=== PATIENT | female | born 1995 | race African-American/Black ===

== ENCOUNTER 2019-11-29 04:45 | Inpatient (IN) | payer OTHER, SELFPAY ==
[2019-11-29] VITALS (52 sets, daily range): BP systolic 92–129; BP diastolic 49–72; PULSE 25–112; RESP 16–18; TEMP 36.6–36.8; O2SAT 77–100; BMI 27.1
[2019-11-29 05:25] LABS: Basophils Absolute Auto 0.1 K/mm3 (0.0-0.1); Basophils Percent Auto 0.5 % (0.2-1.2); Eosinophils Absolute Auto 0.2 K/mm3 (0-0.3); Eosinophils Percent Auto 1.7 % (0-4.4); Hematocrit 35.2 % (37.0-47.0); Hemoglobin 11.6 g/dL (12.0-15.0); Immature Granulocyte Absolute 0.11 K/mm3 (0.00-0.031); Immature Granulocyte Percent A 1.1 % (0-0.5); Lymphocytes Absolute Auto 2.72 K/mm3 (0.9-3.2); Lymphocytes Percent Auto 27.5 % (18.3-44.2); Mean Corpuscular Hemoglobin 29.3 pg (26-34); Mean Corpuscular Volume 88.9 fl (80-100); Mean Platelet Volume 10.8 fl (7.4-10.4); Monocytes Absolute Auto 0.9 K/mm3 (0.1-0.6); Monocytes Percent Auto 9.3 % (2.6-8.5); Neutrophils Absolute Auto 5.9 K/mm3 (1.3-6.7); Neutrophils Percent Auto 59.9 % (45.5-73.1); Platelet Count Result 232 k/mm3 (150-375); Red Blood Count 3.96 M/mm3 (4.2-5.4); Red Cell Distribution Width 14.6 % (11.5-14.5); White Blood Count 9.9 K/mm3 (4.5-10.0)
--- NOTE | 2019-11-29 05:26 | LDADM ---
This patient, Gayle Soares, was admitted to Labor/Delivery/Recovery 106 on 11/29/19 at 04:45. Plans for labor, pain management and were discussed with patient. Patient/family oriented to hospital policies and general routines including ID bracelet, bed and alarms, visiting hours, pain management, procedures, bathroom and other care routines, personal items, smoking policy, room service/diet and guest tray routines, infant security routines, and visiting hours. Patient/Family are encouraged to report perceived risks to care and to ask questions if they do not understand what they are told or what they should do. See OBIX for further documentation.
[2019-11-29] MEDS: OXYTOCIN 30 UNITS/NS 500 ML 30 UNITS/500 ML BAG IV CONT (05:52)
[2019-11-29] MEDS: LACTATED RINGERS 1,000 ML 125 ML IV CONT ×2 (05:52→11:05)
--- NOTE | 2019-11-29 06:34 | P.PNAN_ITS ---
Anes - Eval Pre Procedure Procedure: Labor epidural Date/Time: 11/29/19 06:34 Surgeon: rito Preop Diagnosis: pain during labor Pre Op Diagnosis: IOL Patient Data Age: 23 Gender: F Height: 1.55 m Weight: 65 kg Last Vital Signs Temp 36.6 C 11/29/19 05:30 Pulse 83 11/29/19 06:30 BP 104/59 L 11/29/19 06:30 Allergies Allergy/AdvReac Type Severity Reaction Status Date / Time No Known Allergies Allergy Verified 11/06/19 12:30 Home Medications Medication Instructions Recorded Confirmed Type PNV cmb#95-ferrous fumarate-FA 1 tablet PO DAILY 11/06/19 11/06/19 History [] Laboratory Tests 11/29/19 11/29/19 05:09 05:09 WBC 9.9 K/mm3 K/mm3 (4.5-10.0) RBC 3.96 M/mm3 L M/mm3 (4.2-5.4) Hgb 11.6 g/dL L g/dL (12.0-15.0) Hct 35.2 % L % (37.0-47.0) MCV 88.9 fl fl (80-100) MCH 29.3 pg pg (26-34) MCHC 33.0 g/dl g/dl (32-36) RDW 14.6 % H % (11.5-14.5) Plt Count 232 k/mm3 k/mm3 (150-375) MPV 10.8 fl H fl (7.4-10.4) Immature Gran % (Auto) 1.1 % H % (0-0.5) Neut % (Auto) 59.9 % % (45.5-73.1) Lymph % (Auto) 27.5 % % (18.3-44.2) Collier % (Auto) 9.3 % H % (2.6-8.5) Eos % (Auto) 1.7 % % (0-4.4) Baso % (Auto) 0.5 % % (0.2-1.2) Lymph # (Auto) 2.72 K/mm3 K/mm3 (0.9-3.2) Collier # (Auto) 0.9 K/mm3 H K/mm3 (0.1-0.6) Eos # (Auto) 0.2 K/mm3 K/mm3 (0-0.3) Baso # (Auto) 0.1 K/mm3 K/mm3 (0.0-0.1) Abs Immat Gran (auto) 0.11 K/mm3 H K/mm3 (0.00-0.031) Absolute Neuts (auto) 5.9 K/mm3 K/mm3 (1.3-6.7) Absolute Nucleated RBC 0.0 K/mm3 K/mm3 (0.0-0.012) Nucleated RBC % 0.0 % % (0.0-0.2) RPR Pending Patient hx anesthesia problems: none Family hx anesthesia problems: none [facility] Family History Family History (Updated 11/06/19 @ 12:31 by Isaura Dale RN) Father Hypertension Social History Social History Smoking status: Never smoker Substance use: never Gender identity (if verbalized by the patient): Female Spiritual care concerns: No Exam Day of Procedure 11/29/19 06:34
--- NOTE | 2019-11-29 07:24 | WPDOBADMIT ---
Obstetrics - Admit Note Admission Note: record reviewed. No pertinent additions to the history and/or any subsequent changes in the physical findings that are not consistent with the expected course of the were found.EIL, GBS negative SVE 260/-2, AROM minimal amount of clear odorless fluid, anticipate vaginal delivery Additions to the history and/or subsequent changes in the physical findings follow. None.
[2019-11-29 08:21] LABS: Rapid Plasma Reagin Non-Reactive (NonReactive)
--- NOTE | 2019-11-29 13:30 | PM.OBPRVD ---
OB - Delivery Note Procedure Delivery date: 11/29/19 Procedure: vaginal delivery Intrapartal events: Deceleration Induction method: AROM and per pitocin protocol Delivery monitor: external FHT and external uterine Route of delivery: Laceration description: None Delivery repair: vicryl Specimen: Yes Estimated blood loss (mL): 145 Anesthesia type: Epidural Disposition: other () Baby Date of : 11/29/19 Time of : 13:23 Weeks of gestation at delivery: 39 Infant gender: Male Weight (pounds): 6 Weight (ounces): 2 presentation: vertex position: Right Occiput Anterior Placenta delivery description: Spontaneous cord vessel description: 3 Vessels, Loose and Around Body x1 score one minute: 9 score five minutes: 9 Narrative: mother and baby in stable condition
--- NOTE | 2019-11-29 13:46 | WPDANESEPN ---
Anes - Epidural Procedure Note Date/Time: 11/29/19 13:46 Consent: I have discussed with the patient/family/POA, the placement of an epidural catheter and the use of epidural narcotic/local anesthetic for labor analgesia and/or postoperative pain management, including associated potential risks, benefits, complications and side effects. I have discussed alternative methods of labor analgesia and/or postoperative pain management. The patient/family/POA, understand(s) and wish(es) to proceed with epidural narcotic/local anesthetic for labor analgesia and/or postoperative pain management. Time-Out: A pre-procedural Time-Out was completed immediately before starting the procedure and confirmed: Patient Identification, Site, Procedure, Patient Position and the Availability of Requisite Equipment. Epidural Insertion Note Patient position: sitting Needle: 18g Tuohy-Schliff Catheter: 20g Unstyleted Technique: Loss of resistance. Level of insertion: L3/4 Catheter skin nathan (cm): 11 Length in epidural space (cm): 5 Skin anesthesia: lidocaine 1% Test dose: 1.5% Lidocaine with 1:[id number] Epi, negative for subarachnoid Inj and negative for intravascular Inj Observations: tolerated well Complications: none
[2019-11-29] MEDS: OXYTOCIN 30 UNITS/NS 500 ML 30 UNITS/500 ML BAG 125 UNITS IV CONT (14:00)
[2019-11-29] MEDS: BENZOCAINE 20% AER SPR (*SP) 56 GM CAN 1 SPRAY TOPICAL (14:26)
[2019-11-29] MEDS: WITCH HAZEL 40 PADS 1 PAD TOPICAL (14:27)
--- NOTE | 2019-11-29 16:55 | PC.NURSE ---
Patient transferred to post room #290 per wheelchair from labor and delivery. Support person present. Oriented to unit, room, information board, rooming in, admission packet and security measures. Patient verbalizes understanding.
[2019-11-29] MEDS: IBUPROFEN 600 MG TABLET PO (17:49)
[2019-11-29] MEDS: ACETAMINOPHEN 325 MG TABLET 650 MG PO (20:36)
[2019-11-30] MEDS: IBUPROFEN 600 MG TABLET PO ×3 (00:06→13:09)
[2019-11-30] MEDS: ACETAMINOPHEN 325 MG TABLET 650 MG PO ×2 (04:10→11:34)
[2019-11-30 04:56] LABS: Hematocrit 34.2 % (37.0-47.0); Hemoglobin 11.1 g/dL (12.0-15.0)
[2019-11-30 07:07] VITALS: BP 98/61; PULSE 89; RESP 18; TEMP 36.9; O2SAT 97
--- NOTE | 2019-11-30 07:16 | WPDANLDPN2 ---
Anes-Prog Note L&D Date/Time: 11/30/19 07:16 Comfortable throughout: labor and delivery Neuraxial method: epidural Epidural/Spinal procedure site: clean & non-tender Neuro status: Neuro function grossly intact. Cardiovascular status: normal Respiratory status: normal Airway patency: baseline Mental status: baseline Post-Op hydration status: normal Vital Signs: Last Vital Signs Temp 36.6 C 11/29/19 20:00 Pulse 82 11/29/19 20:00 Resp 16 11/29/19 20:00 BP 111/70 11/29/19 20:00 Pulse Ox 100 11/29/19 20:00 I/O: Intake & Output 11/29/19 11/29/19 11/30/19 15:59 23:59 07:59 Intake Total 1000 500 Balance 1000 500 Post-procedural complaints: none Patient feedback: Patient satisfied with anesthetic care.
--- NOTE | 2019-11-30 08:53 | P.PNOB_ITS ---
OB - PN: Subj Subjective Date/time seen: 11/30/19 08:53 Patient comments: no complaints baby status: doing well OB - PN: Obj Data Labs CBC & Chem 7: 11/30/19 04:16 Labs: Laboratory Results - last 24 hr 11/30/19 04:16 Hgb 11.1 L Hct 34.2 L OB - PN A/P Plan day: 1 Plan: discharge home Time Spent With Patient Time: Total time spent is greater than 50% in coordination of care (as docu mented) at patient's floor/unit and/or counseling patient: Exam Const: General: comfortable Resp: Effort & Inspection: normal respiratory effort Psych: Appearance: grossly normal Affect: normal affect Attitude: cooperative Judgement: Good judgement present (Psych)
--- NOTE | 2019-11-30 08:55 | P.DS_ITS ---
OB - DS: Summary OB Procedures : None OB Procedures Intrapartum: Spontaneous Vag Delivery OB Procedures: : None Time Spent with Patient Time attestation: Total time spent providing and/or coordinating discharge services: DS: Data Data Completed and Pending Labs on day of discharge: Labs from last 24 hours 11/30/19 04:16 Hgb 11.1 L Hct 34.2 L Discharge Plan Discharge Attending physician on discharge: Ni Hill Discharging Clinician: Clarissa Martinez Patient Disposition: Home, Self-Care Activity: pelvic rest Diet: as tolerated and regular Patient Instructions: Antibiotic Form Stand Alone Forms: General Discharge Information Follow-up/Referrals: Clarissa Martinez CNM [Certified Nurse [employer] Department Supervisor] - 4 Weeks Discharge Medications: Continued PNV cmb#95-ferrous fumarate-FA [] 28 mg iron- 800 mcg Tablet 1 tablet PO DAILY RF: 0 Date of admission: 11/29/19 04:45 Primary Care Provider: PHYSICIAN,AUDIT CONTROL CLERK Admitting Provider: Ni Hill Attending physician on admission: Ni Hill
[2019-12-02 11:00] VITALS: BP 101/61; PULSE 96; RESP 20; TEMP 37.2; O2SAT 100
== END 2019-11-30 15:25 | disposition home or self-care (01) | DRG 560 ==
LOC: ANHLDR 04:48 → ANHOB2 17:17
PROVIDERS: Advanced Practice Midwife; Admitting Provider Obstetrics & Gynecology; Visit Provider Obstetrics & Gynecology
DX: O69.82X0 Labor and delivery complicated by other cord entanglement, without compression, not applicable or unspecified (principal); Z37.0 Single live birth; Z3A.39 39 weeks gestation of pregnancy; O36.8330 Maternal care for abnormalities of the fetal heart rate or rhythm, third trimester, not applicable or unspecified; O99.52 Diseases of the respiratory system complicating childbirth; J45.909 Unspecified asthma, uncomplicated
CPT/HCPCS: 36415; 85014; 85018; 85025; 86592; 86850; 86900; 86901; A9270; J2590; J2795; J3010; J7120